=== PATIENT | male | born 1985 ===

== ENCOUNTER 2024-08-30 11:24 | Emergency (ER) | payer OTHER ==
[~2024-08-30] VITALS: Ht 170.2 cm; Wt 85.7 kg
[2024-08-30] MEDS ORDERED: FAMOtidine 10 MG/ML (4ML VIAL) IV PUSH ONE (11:45)
[2024-08-30] MEDS ORDERED: FAMOTIDINE/PF 20 MG/2 ML VIAL ONE (13:06)
[2024-08-30 14:10] LABS: HEMATOCRIT 42.6 % (39.0-48.0); HEMOGLOBIN 14.1 g/dL (13-16.00); MEAN CELL VOLUME 82.3 fL (80.0-100.00); MEAN CORPUSCULAR HEMOGLOBIN 27.3 pg (27.00-32.0); MEAN CORPUSCULAR HGB CONC 33.2 g/dl (32.0-36.0); PLATELET COUNT 160 K/uL (150-450); RED BLOOD COUNT 5.17 M/uL (4.00-6.00); RED CELL DISTRIBUTION WIDTH 14.5 % (11.5-14.5)
[2024-08-30 14:45] LABS: COVID-19 AG NEGATIVE (NEGATIVE)
[2024-08-30 14:46] LABS: INFLUENZA A AG NEGATIVE (NEGATIVE)
[2024-08-30] MEDS ORDERED: AZITHROMYCIN500 MG PO (14:49)
[2024-08-30] MEDS ORDERED: PEPCID AC20 MG PO (14:49)
[2024-08-30] MEDS ORDERED: ZYRTEC10 MG PO (14:49)
== END 2024-08-30 15:31 | disposition home or self-care (01) ==
LOC: ER 11:24
PROVIDERS: General Practice
DX: J00 Acute nasopharyngitis [common cold] (principal); R19.7 Diarrhea, unspecified; R11.0 Nausea; R51.9 Headache, unspecified; Z88.6 Allergy status to analgesic agent; Z20.822 Contact with and (suspected) exposure to COVID-19

== ENCOUNTER 2024-09-01 08:45 | Outpatient (CLI) | payer OTHER ==
[~2024-09-01 08:45] MED LIST: AZITHROMYCIN500 MG PO; PEPCID AC20 MG PO; ZYRTEC10 MG PO
[2024-09-01 09:30] LABS: HEMATOCRIT 43.2 % (39.0-48.0); HEMOGLOBIN 14.3 g/dL (13-16.00); MEAN CELL VOLUME 81.8 fL (80.0-100.00); PLATELET COUNT 147 K/uL (150-450); RED BLOOD COUNT 5.28 M/uL (4.00-6.00); RED CELL DISTRIBUTION WIDTH 14.3 % (11.5-14.5)
[2024-09-01 09:45] LABS: COVID-19 AG NEGATIVE (NEGATIVE)
[2024-09-01 09:46] LABS: INFLUENZA A AG NEGATIVE (NEGATIVE)
[2024-09-01 09:49] LABS: PH,URINE 6.5 (5.0-8.0); URINE APPEARANCE Clear; URINE BILIRRUBIN Negative (NEGATIVE); URINE BLOOD Negative; URINE COLOR Yellow; URINE GLUCOSE Negative (NEGATIVE); URINE KETONE 15 (NEGATIVE); URINE LEUKOCYTE Negative; URINE NITRATE Negative; URINE PROTEIN Negative (NEGATIVE)
[2024-09-01 09:50] LABS: URINE EPITHELIAL CELLS 1.8 uL (0.0-38.8); URINE RBC 2.7 uL (0.0-20.8); URINE WBC 4.5 uL (0.0-23.2)
[2024-09-01 10:02] LABS: MYCOPLASMA PNEUMONIAE IGM NON REACTIVE (NO REACTIVE)
[2024-09-01 10:03] LABS: URINE BACTERIA 1.2 uL (0.0-1933); URINE CAST 0.14 uL (0.0-1.40)
[2024-09-01 10:14] LABS: BILIRUBIN TOTAL 0.4 mg/dL (0.3-1.2); CALCIUM 8.6 mg/dL (8.5-10.1); CREATININE SERUM 0.94 mg/dL (0.70-1.30); GFR 90.81; GLOBULINA 3.1 G/DL (2.4-3.5); POTASSIUM 4.08 mEq/L (3.5-5.1); TOTAL PROTEIN 7.1 gm/dL (6.4-8.2)
== END 2024-09-01 08:53 | disposition home or self-care (01) ==
LOC: LAB 08:45
DX: J11.1 Influenza due to unidentified influenza virus with other respiratory manifestations (principal); R35.0 Frequency of micturition; J12.0 Adenoviral pneumonia

== ENCOUNTER 2024-09-03 10:47 | Outpatient (CLI) | payer OTHER ==
[2024-09-03 12:47] LABS: HEMATOCRIT 43.1 % (39.0-48.0); HEMOGLOBIN 14.6 g/dL (13-16.00); MEAN CELL VOLUME 80.3 fL (80.0-100.00); MEAN CORPUSCULAR HEMOGLOBIN 27.2 pg (27.00-32.0); PLATELET COUNT 132 K/uL (150-450); RED BLOOD COUNT 5.37 M/uL (4.00-6.00); RED CELL DISTRIBUTION WIDTH 14.3 % (11.5-14.5)
== END 2024-09-03 15:09 | disposition home or self-care (01) ==
LOC: LAB 10:47
DX: E55.9 Vitamin D deficiency, unspecified (principal); A90 Dengue fever [classical dengue]

== ENCOUNTER 2024-09-09 08:45 | Outpatient (CLI) | payer OTHER ==
[2024-09-09 09:18] LABS: HEMATOCRIT 42.5 % (39.0-48.0); HEMOGLOBIN 14.3 g/dL (13-16.00); MEAN CELL VOLUME 81.4 fL (80.0-100.00); MEAN CORPUSCULAR HEMOGLOBIN 27.3 pg (27.00-32.0); MEAN CORPUSCULAR HGB CONC 33.6 g/dl (32.0-36.0); PLATELET COUNT 322 K/uL (150-450); RED BLOOD COUNT 5.22 M/uL (4.00-6.00)
== END 2024-09-09 14:41 | disposition home or self-care (01) ==
LOC: LAB 08:45
DX: J11.1 Influenza due to unidentified influenza virus with other respiratory manifestations (principal); J10.1 Influenza due to other identified influenza virus with other respiratory manifestations; A49.3 Mycoplasma infection, unspecified site; Z20.828 Contact with and (suspected) exposure to other viral communicable diseases; R05.9 Cough, unspecified; R53.1 Weakness